=== PATIENT | male | born 1950 | race Caucasian/White ===

== ENCOUNTER 2019-05-27 06:26 | Observation (INO) | payer MEDICARE, OTHER ==
[~2019-05-27] VITALS: Ht 172.7 cm; Wt 67.1 kg
[~2019-05-27 06:26] MED LIST: ABILIFY5 MG; ACETAMINOPHEN325 M1 PO; ASPIRIN325 MG PO; CARAFATE1 GM PO; DESITIN60 GM TP; FOLIC ACID1 MG PO; HYDROCORTISONE28 G3 TP; METFORMIN HCL500 MG PO; METOPROLOL SUCC50 MG PO; METOPROLOL TART50 MG PO; METOPROLOL5 MG/5 M1 PO; PRILOSEC20 MG PO; SIMVASTATIN20 MG PO; THIAMINE HCL500 MG PO; TRAZODONE HCL150 MG PO; VENTOLIN HFA18 GM IH
--- OUTSIDE RECORDS SUMMARY | 2019-05-27 06:28 | XMS ---
PreManage Notification: TI JARQUIN Security Blow Down Operator Events No recent Security Events currently on file CRITERIA MET - Group Notification CARE PROVIDERS JUSTYN Orr Primary Care 06/03/2015-Current HEATHER PHONE: [phone] Filomena has no Care Guidelines for this patient. EElmo VISIT COUNT (12 MO.) 1 JASMYNE Yoo TOTAL 1 NOTE: Visits indicate total known visits. ED/UCC VISIT TRACKING (12 MO.) 05/27/2019 06:27 JASMYNE Galvez OR TYPE: Emergency COMPLAINT: - WEAKNESS INPATIENT VISIT TRACKING (12 MO.) No inpatient visits to display in this time frame [email or web address]
--- NOTE | 2019-05-27 10:15 | NUR ---
ADMISSION COMPLETE. IVF INFUSING TO RIGHT ARM IV, FIELD START SL INTACT TO LEFT ARM. PATIENT DENIES PAIN OR NAUSEA, IS LOOKING AT THE MENU FOR LUNCH. DISCUSSED WITH PATIENT THAT HE WOULD BE HAVING BEER WITH MEALS, AND THAT I WOULD GET ONE FOR HIM SOON. PATIENT HAS PRODUCTIVE SOUNDING COUGH, AGREES TO USE CALL LIGHT, IS ORIENTED AT THIS TIME, NO TREMORS NOTED.
[2019-05-27] MEDS ORDERED: METOPROLOL SUCC50 MG PO (10:59)
--- NOTE | 2019-05-27 12:26 | NUR ---
PATIENT SLEEPING WITH REGULAR RESPIRATIONS.
--- NOTE | 2019-05-27 13:08 | NUR ---
PATIENT RESTING IN BED. VITAL SIGNS AND I&O DONE. PATIENT DID NOT VOID OR EAT DURING THIS PERIOD. CALL LIGHT WITHIN REACH. NO OTHER NEEDS AT THIS TIME
--- NOTE | 2019-05-27 14:03 | NUR ---
PATIENT CONTINUES TO SLEEP, WHEN WOKE UP HE DENIES WANT TO EAT LUNCH. AFTERNOON REASSESSMENT DONE, NO CHANGES FROM ADMISSION ASSESSMENT.
--- NOTE | 2019-05-27 15:56 | NUR ---
PATIENT ADMITTED TODAY, HAS HAD A BEER AND A SNACK BEFORE LUNCH, SLEPT THROUGH LUNCH, DINNER ORDERED FOR PATIENT. PATIENT REPORTED TO HAVE BEEN FEBRILE IN E/R, HAS BEEN AFEBRILE SINCE COMING TO MED SURG. PLAN TO WAKE PATIENT FOR DINNER, LIKELY TO DISCHARGE TO HOME TOMORROW.
--- NOTE | 2019-05-27 17:13 | NUR ---
PATIENT SITTING UP TO EAT DINNER. BEER OPEN AND AT BEDSIDE. PATIENT IS FOLLOWING DIRECTIONS WELL, USES THE URINAL, VOIDING WELL.
--- NOTE | 2019-05-27 17:27 | NUR ---
PATIENT SITTING UP IN BED. VITAL SIGNS AND I&O DONE. CALL LIGHT WITHIN REACH. NO OTHER NEEDS AT THIS TIME
--- NOTE | 2019-05-27 19:20 | NUR ---
ROUNDED CHARGE. PATIENT IS RESTING IN BED WITH EYES CLOSED, RR 20. CALL LIGHT IN REACH.
--- NOTE | 2019-05-27 22:01 | NUR ---
EMPTIED PATIENT'S URINALS, GAVE HIM ANOTHER BEER AT HIS REQUEST IV'S FLUSHED FINE. PATIENT REQUESTED SOME COUGH SYRUP WHICH WAS GIVEN. PATIENT SHOWN HOW TO RUN THE REMOTE AND HOW TO TUR OFF HIS LIGHTS. PATIENT WATCHING TV IV INFUSING WNL. PATIENT HAD NO OTHER NEEDS. CALL LIGHT IN REACH.
--- NOTE | 2019-05-27 23:31 | NUR ---
PATIENT SITIING IN BED WATCHING TV DRINKING HIS BEER, WITH AN OCCASIONAL COUGH, CALL LIGHT IN REACH. PATIENT HAS NO NEEDS AT THIS TIME.
--- NOTE | 2019-05-28 01:20 | NUR ---
PATIENT CONTINUES TO WATCH TV AND IS DRINKING HIS BEER. URINAL EMPTIED. CALL LIGHT IN REACH AND PATIENT HAD NO OTHER NEEDS.
--- NOTE | 2019-05-28 03:34 | NUR ---
PATIENT STILL AWAKE, REQUESTED ANOTHER BEER WHICH WAS GIVEN AND PATIENT CONTINUES TO WATCH TV. CALL LIGHT IN REACH.
--- NOTE | 2019-05-28 05:03 | NUR ---
PATIENT SAT IN BED ALL NIGHT SIPPING ON BEERS AND IS READY TO GO HOME STILL JUST WATCHING TV. VS STABLE EXCEPT LOW GRADE FEVER 99.8F ORAL. CALL LIGHT IN REACH.
--- NOTE | 2019-05-28 05:49 | NUR ---
CALLED PATIENT'S PULSE HAS BEEN IN THE 90'S ALL NIGHT UNTIL NOW AND IT IS NOW IN THE 140'S AND THIS WAS CONFIRMED WITH FULL MINUTE APICAL PULSE, CONFIRMED WITH RADIAL PULSE AND SAT PROBE, BUT THEN HE URINATED 325 AND HAD LABS DRAWN AND HIS HR IS BACK TO THE 90'S. ORDERED PATIENT BE PUT ON TELE# AND HIS EXTENDED RELEASE METOPROLOL GIVEN EARLY YESTRDAYS DOSE WAS HELD DUE TO A LOW BLOOD PRESSURE AND A HIGH LACTIC ACID. PATIENT GOING ON TELE #7.
--- NOTE | 2019-05-28 06:13 | NUR ---
IN TO ASSES PATIENT WITH SHITAL WILLS. PATIENTS APICAL PULSE ASSESED FOR Q1 MINUTE AND COMPARED WITH RADIAL PULSE. PULSE IS 93. PATIENT DENIES ANY CHEST PAIN OR SOB. PATIENT STATED "I DIDNT GET MY BLOOD PRESSURE MEDICATION LAST NIGHT AND WHEN THAT HAPPENS MY HEART GETS FAST". PATIENTS HR RECORDED. SHITAL RN TO PLACE CALL TO MD TO UPDATE ON HR. PATIENT DENIES ANY FURTHER NEEDS. CALL LIGHT IN REACH.
--- NOTE | 2019-05-28 06:21 | NUR ---
METOPROLOL XL 75MG PO GIVEN AND PATIENT ON TELE#7 WITH A REGULAR SR OF 94. STILL NO PAIN OR PALPITATIONS.
--- NOTE | 2019-05-28 06:43 | EKG ---
[facility] [address] [facility] [place], [place] [address] Signed Sinus tachycardia Otherwise normal ECG When compared with ECG of 16-AUG-2016 11:10, No significant change was found Confirmed by ROHAN VANEGAS MD ([id number]) on 05/28/2019 6:43:41 AM Electronically Signed By: ROHAN VANEGAS MD 05/28/19 0643 PATIENT NAME: TI JARQUIN Electrocardiogram DATE OF : 50 PHYSICIAN: ROHAN VANEGAS MD REPORT #: [id number] REPORT IS CONFIDENTIAL AND NOT TO BE RELEASED WITHOUT AUTHORIZATION
--- NOTE | 2019-05-28 07:25 | NUR ---
PT RESTING SUPINE IN BED EYES CLOSED AND RESPIRATIONS EVEN AND UNLABORED. CALL LIGHT AND H2O IN REACH. REPORT RECEIVED FROM ELMA ISAACS.
--- NOTE | 2019-05-28 07:38 | NUR ---
pt resting in left lateral side eyes closed and respirations even and unlabored. call ligth and h2o in reach.
--- NOTE | 2019-05-28 08:10 | NUR ---
PT RESTING SUPINE IN BED, ALERT AND ORIENTED TO VOICE. PT'S HR IS TACHY AT 140, MD AWARE AND IV MAG 4MG HUNG PER MD ORDER. PT DENIES SOB, CHEST PAIN OR ANY OTHER SYMPTOMS AT THIS TIME. CALL LIGHT AND H2O IN REACH. PT SITTING UP EATING BREAKFAST; NO NEEDS OR CONCERNS VOICED.
--- NOTE | 2019-05-28 11:19 | NUR ---
PT RESTING SUPINE IN BED ALERT AND ORIENTED. PT DENIES SOB, PAIN, NAUSEA, PALPITATIONS, DIZZINESS OR OTHER SYMPTOMS. CALL LIGHT AND H2O IN REACH. NO NEEDS OR CONCERNS VOICED.
--- NOTE | 2019-05-28 12:10 | NUR ---
SPOKE WITH PATIENT IN ROOM. PATIENT WAS RESTING WITH EYES CLOSED BUT OPENED TO SOUND. STATES HE LIVES WITH HIS SISTER. HE IS RETIRED. HE DOES NOT DRIVE BUT SHE DOES AND TAKES HIM TO THE STORE AND APPOINTMENTS. THEY SHARE HOUSEWORK BUT HE STATES HE TAKES CARE OF HIMSELF. HE DENIES USING DME. PATIENT INTENDS AND FEELS SAFE TO RETURN HOME AT DISCHARGE. HE STATES HE GETS FOOD STAMPS AND FEELS HE HAS ENOUGH MONEY FOR MEDICATIONS, FOOD AND UTILITIES. HE DENIES NEEDING ANY RESOURCES. STATES HE HAS A PCP TERRELL REGAN AT OUR CLINIC. HE UNDERSTANDS HE WILL NEED TO FOLLOW UP THERE AFTER DISCHARGE. NO KNOWN BARRIERS TO DISCHARGE HOME AT THIS TIME. WILL FOLLOW NEEDED.
--- NOTE | 2019-05-28 12:44 | NUR ---
PT RESTING IN SEMIFOWLERS POSITION IN BED. PT PROVIDED WITH 24 OZ CAN OF BEER PER HIS REQUEST. LUNCH ORDER ALSO WAS PLACED PER PT REQUEST. MD IS AWARE OF PT'S PERSISTING TACHYCARDIA WITH A CURRENT HR OF 124. PT REMAINS ASYMPTOMATIC AT THIS TIME. CALL LIGHT AND H2O IN REACH.
--- NOTE | 2019-05-28 14:33 | NUR ---
PT RESTING IN SEMIFOWLERS POSITION IN BED ALERT AND ORIENTED. CALL LIGHT H2O AND BEER IN REACH. PT ASSESSMENT COMPLETED. PT DNEIES SOB, NAUSEA, PAIN OR ANY OTHER SYMPTOMS OR CONCERNS AT THIS TIME. PT VOIDING LARGE AMOUNTS OF CLEAR YELLOW URINE, URINALS EMPTIED AT THIS TIME AND RECORDED.
--- NOTE | 2019-05-28 16:25 | NUR ---
PT ALERT AND ORIENTED CALL LIGHT, BEER AND H2O IN REACH. PT DENIES NEEDS OR CONCERNS. IV FLUIDS INFUSING ORDERED.
--- NOTE | 2019-05-28 17:10 | NUR ---
PT STATES UNDERSTANDING OF HIS MEDS. I TAKE A BP MED [facility] AND EVERYTHING ELSE I TAKE IS NEEDED. PT STATES HE DOESN'T KNOW A LOT ABOUT HIS DX, WE TALKED ABOUT IT AND HE THEN SAID HE DID GET HIS FLU SHOT DOWN AT THE [facility] IN FEB OR MAR. WILL TALK TO PT AGAIN TOMORROW.
--- NOTE | 2019-05-28 19:29 | NUR ---
PATIENT RESTING QUIETLY IN BED, EYES CLOSED, RESPIRATIONS EVEN AND REGULAR, HR-124 ON TELE#7. CALL LIGHT AND FLUIDS IN REACH.
--- NOTE | 2019-05-28 21:05 | NUR ---
PT REPORT RECIEVED FROM SHITAL WILLS. PT WATCHING TV IN ROOM. NO NEEDS AT THIS TIME. CALL LIGHT IN REACH.
--- NOTE | 2019-05-28 21:45 | NUR ---
PT ASSESSMENT COMPLETED. TELE#7 @98 SR. BILATERAL LUNGS COURSE IN LOWER LOBES. CLEAR IN UPPER. PT DECLINES WATER, HAS A BEER. UO SUFFICIENT. PT HAS HAD SEVERAL RUNS OF SINUS TACH WITHOUT CHEST PAIN, SOB. SCHEDULED MEDS PROVIDED. NO OTHER NEEDS, CALL LIGHT IN REACH.
--- NOTE | 2019-05-28 22:08 | NUR ---
MD NOTIFIED OF SINUS TCH MAINTINAING IN THE 150s BY PHONE. MD GAVE VERBAL ORDER FOR 25MG METOPROLOL I TIME BY MOUTH. ORDER REPEATED BACK.
--- NOTE | 2019-05-28 22:10 | NUR ---
PRIMARY RN EDYTA RECEIVED TELEPHONE ORDER FOR 25 MG PO METOPROLOL X1 NOW FOR PT'S SUSTAINED HR IN THE 150'S. ENTERED ORDERS CAMPUS SUPERVISOR.
--- NOTE | 2019-05-28 22:39 | NUR ---
ORDERED METOPROLOL PROVIDED AFTER VITALS TAKEN. TELE # 7 SINUS TACH AT 148. NO THER NEEDS, CALL LIGHT IN REACH.
--- NOTE | 2019-05-29 00:11 | NUR ---
PT RESTING IN BED, EYES CLOSED. RR 16, EVEN, UNLABORED. TELE #7 SINUS TACH AT 139. CALL LIGHT IN REACH.
--- NOTE | 2019-05-29 01:48 | NUR ---
PT RESTING IN BED, EYES CLOSED. RR 14, EVEN, UNLABORED. CALL LIGHT IN REACH.
--- NOTE | 2019-05-29 04:20 | NUR ---
PT AWAKE IN ROOM. ASSESSMENT COMPLETED. NO CHANGES. VS AND I&O COMPLETED. NO OTHER NEEDS AT THIS TIME. CALL LIGHT IN REACH.
--- NOTE | 2019-05-29 09:14 | NUR ---
PT IS ALERT, ATE 100% OF HIS BREAKFAST WITH A 16OZ BEER. STATES HE IS FEELING MUCH BETTER, OCCASIONAL LOOSE PROD COUGH, MAINTAINS SATS ON RA. NO TEMPS.DENIES ANY NEEDS. IVF PATENT. USING CALL LIGHT APPROP.
--- NOTE | 2019-05-29 09:45 | NUR ---
PT RESTING IN SEMIFOWLERS POSITION IN BED. PT ALERT AND ORIENTED CALL LIGHT AND H2O IN REACH. PT DENIES NEEDS OR CONCERNS. PT DENIES SOB, NAUSEA OR PAIN.
[2019-05-29] MEDS ORDERED: OSELTAMIVIR PHO75 MG PO (10:35)
[2019-05-29] MEDS ORDERED: NICORETTE4 M1 BUCCAL (10:36)
--- NOTE | 2019-05-29 12:06 | NUR ---
PT RESTING IN BED ON L SIDE WATCH TV. PT ENGAGED SOME, APPEARED A LITTLE DIS- INTERESTED IN CONVERSATION. GAVE BLESSING, WILL FOLLOW NEEDED
--- NOTE | 2019-05-29 12:10 | NUR ---
Spoke with Ilir. He states he is resting, denies further needs. Plans on going to his house on discharge.
--- NOTE | 2019-06-01 13:31 | NUR ---
TALKED WITH PT REGARDING HIS STAY IN THE HOSPITAL, HE STATES HE JUST GOT HIS ANTIVIRAL MED FILLED AND FINISHED THOSE, HE STATES THE INSURANCE WOULDN'T PAY FOR THE NICOTINE LOZENGES AND HE WOULDN'T PAY FOR IT HIMSELF. HE IS GOING TO BE FOLLOWING UP WITH HIS PCP.
== END 2019-05-29 13:40 | disposition home or self-care (01) ==
LOC: ED 06:26 → MS 06:28 → ED 06:38 → MS 06:38
PROVIDERS: ADMIT Internal Medicine
DX: J10.1 Influenza due to other identified influenza virus with other respiratory manifestations (principal); R74.0 Nonspecific elevation of levels of transaminase and lactic acid dehydrogenase [LDH]; R00.0 Tachycardia, unspecified; E86.0 Dehydration; I10 Essential (primary) hypertension; F17.200 Nicotine dependence, unspecified, uncomplicated; Z79.899 Other long term (current) drug therapy; Z86.19 Personal history of other infectious and parasitic diseases
CPT/HCPCS: 36415; 71045; 80048; 80053; 81001; 83605; 83735; 85025; 87502; 93005; 93010; 96361; 96374; 96375; 99291; 99406; G0378; J3411; J3475; J3480; J7030; J7060

== ENCOUNTER 2019-06-09 13:38 | Emergency (ER) | payer MEDICARE, OTHER ==
[~2019-06-09] VITALS: Ht 172.7 cm; Wt 67.1 kg
[~2019-06-09 13:38] MED LIST changes: +NICORETTE4 M1 BUCCAL; +OSELTAMIVIR PHO75 MG PO
--- OUTSIDE RECORDS SUMMARY | 2019-06-09 13:42 | XMS ---
PreManage Notification: TI JARQUIN Security Commercial Artist Events No recent Security Events currently on file CRITERIA MET - Group Notification - [facility] - Has Care Guidelines - [facility] - 2 Visits in 30 Days CARE PROVIDERS YANI VASQUEZ Nurse Practitioner: Family 05/28/2019-Current PHONE: Unknown JUSTYN Orr Primary Care 06/03/2015-Current [facility] PHONE: [phone] Filomena has no Care Guidelines for this patient. Care History Medical/Surgical 05/28/2019 [facility] - Patient is currently established with [facility]. If patient is seen in the ED during business hours. Please contact CHWs at [facility]. Care Recommendation: If this patient has had 5 or more Emergency Department visits in the last 12 months.\T\nbsp; Patient will require education on the scope and purpose of the ED as an acute care provider not a Primary Care Provider and should not be utilized for chronic conditions.\T\nbsp; These are guidelines and the provider should exercise clinical judgment when providing care. 05/28/2019 [facility] Patient has follow up appointment on 06/09/2019 with Cristiana Rodriguez E.D. VISIT COUNT (12 MO.) 2 [facility] Jean TOTAL 2 NOTE: Visits indicate total known visits. ED/UCC VISIT TRACKING (12 MO.) [facility] COMPLAINT: - DEHYDRATION 05/27/2019 06:27 JASMYNE Galvez [place] TYPE: Emergency COMPLAINT: - INFLUENZA B, DEHYDRATION INPATIENT VISIT TRACKING (12 MO.) 05/27/2019 06:28 JASMYNE Galvez [place] TYPE: Observation COMPLAINT: - INFLUENZA B, DEHYDRATION DIAGNOSES: - Flu due to oth ident influenza virus w oth resp manifest - Essential (primary) hypertension - Other watermelon harvesting supervisor (current) drug therapy - Personal history of other infectious and parasitic diseases - Weakness - Dehydration - Nicotine dependence, unspecified, uncomplicated - Nonspec elev of levels of transamns \T\ lactic acid dehydrgnse - Tachycardia, unspecified [email or web address]
== END 2019-06-09 16:40 | disposition home or self-care (01) ==
LOC: ED 13:38
DX: E86.0 Dehydration (principal); I10 Essential (primary) hypertension; E11.9 Type 2 diabetes mellitus without complications; F17.200 Nicotine dependence, unspecified, uncomplicated; Z79.899 Other long term (current) drug therapy
CPT/HCPCS: 36415; 80053; 85025; 96360; 96361; 99284-25; G0480; J7030

== ENCOUNTER 2020-02-04 06:20 | Day surgery (SDC) | payer MEDICARE, OTHER ==
--- NOTE | 2020-02-01 20:02 | EKG ---
[facility] [address] [facility] [place], [place] [address] Signed Sinus tachycardia Biatrial enlargement Abnormal ECG When compared with ECG of 27-MAY-2019 06:52, No significant change was found Confirmed by SANTY SCHAEFER DO ([id number]) on 02/01/2020 8:02:33 PM Electronically Signed By: SANTY SCHAEFER DO 02/01/202001 PATIENT NAME: TI JARQUIN Electrocardiogram DATE OF : 50 PHYSICIAN: SANTY SCHAEFER DO REPORT #: [id number] REPORT IS CONFIDENTIAL AND NOT TO BE RELEASED WITHOUT AUTHORIZATION
[~2020-02-04] VITALS: Ht 170.2 cm; Wt 65.8 kg
[~2020-02-04 06:20] MED LIST changes: +FLOVENT DISKU250 MCG INH
--- NOTE | 2020-02-04 08:31 | NUR ---
02/04/20 0831 Lena Nam 3036 PT ARRIVED TO PACU WITH ORAL AIRWAY IN PLACE. VSS. O2 MASK IN PLACE AT 10L.
--- NOTE | 2020-02-04 18:32 | OR ---
[facility] [address] [place], [place] [address] Signed DATE OF OPERATION: 02/04/2020 SURGEON: Kilo Morales MD PREOPERATIVE DIAGNOSES: 1. History of tubular adenoma 2012. 2. Chronic alcoholism and multiple medical problems, ASA category IV. POSTOPERATIVE DIAGNOSES: 1. Sigmoid diverticulosis. 2. Redundant colon. 3. Polyps x3, probable hyperplastic polyps. PROCEDURE: Total colonoscopy to cecum with cold morcellation polypectomy x3. ANESTHESIA: Intravenous sedation, propofol infusion; Kilo Mandel CRNA. INDICATION: This 69-year-old white man is a patient of Cristiana Mccloud and is markedly debilitated related to tobacco and alcohol abuse. He underwent colonoscopy in 2012 at which time he was found to have a tubular adenoma. He was seen in early August for consideration of surveillance colonoscopy, but due to the COVID pandemic, his surveillance colonoscopy was delayed. He is now here for colonoscopy. The risks of bleeding, infection, and perforation related to colonoscopy were reviewed with him. He understands and wished to proceed. FINDINGS: The prep was good. Complete colonoscopy was undertaken to the cecum without question. The appendiceal orifice was well identified. He had three small polyps in aggregate, 1 in the right colon and 2 at the rectum. Likely they were hyperplastic and not even adenomatous, though pathology is pending. DESCRIPTION OF PROCEDURE: The patient was brought to the surgical endoscopy suite room #2, placed in lateral decubitus position, given intravenous sedation with full cardiopulmonary monitoring by the improvement advisor with propofol infusional technique. Digital rectal examination was normal. Electronically Signed By: KILO MORALES MD 02/04/20 1832 PATIENT NAME: TI JARQUIN OPERATIVE REPORT DATE OF : 50 REPORT #: [id number] PHYSICIAN: KILO MORALES MD PCP: CRISTIANA MCCLOUD REPORT IS CONFIDENTIAL AND NOT TO BE RELEASED WITHOUT AUTHORIZATION [facility] [address] [place], [place] [address] Signed An Olympus video colonoscope was passed in the rectum and manipulated throughout the colon noting diverticulosis and an extremely redundant colon. With time perseverance, the scope was ultimately advanced to the cecum. The appendiceal orifice was well identified as was the ileocecal valve. The scope was withdrawn in the mid ascending colon was a small polyp likely hyperplastic, though it may be adenomatous, it was excised with cold morcellation technique. Photographs were taken. The scope was further withdrawn and diverticula were seen in the left colon. In the rectosigmoid, there were 2 small polyps together, both excised with cold morcellation technique, again, most likely hyperplastic. Further withdrawal of scope showed no other abnormalities. Scope was removed and the patient was taken to the recovery room in good condition. CONCLUDING DIAGNOSIS: Small polyps x3, likely hyperplastic. PLAN: Recommend a repeat colonoscopy in 5 years if adenomatous polyps are noted. He will return to the ongoing care of LUIS Fernandez. MD MANUEL Oswald/MARICRUZ /[id number] cc: LUIS Fernandez Copies: ~ Electronically Signed By: KILO MORALES MD 02/04/20 1832 PATIENT NAME: TI JARQUIN OPERATIVE REPORT DATE OF : 50 REPORT #: [id number] PHYSICIAN: KILO MORALES MD PCP: CRISTIANA MCCLOUD REPORT IS CONFIDENTIAL AND NOT TO BE RELEASED WITHOUT AUTHORIZATION
--- NOTE | 2020-02-09 12:50 | PATH ---
[facility] [address] [facility] [place], [place] [address] Signed SPECIMEN(S): A ASCENDING POLYP SPECIMEN(S): B RECTAL POLYP SPECIMEN SOURCE: A. ASCENDING POLYP B. RECTAL POLYP CLINICAL HISTORY: Colonoscopy. History of polyps. Postop: Diverticulitis, polyps x 2. MICROSCOPIC DESCRIPTION: Histologic sections of all submitted blocks are examined by light microscopy. These findings, together with the gross examination, support the pathologic diagnosis. FINAL PATHOLOGIC DIAGNOSIS: A. Colon, ascending, polypectomy: - Tubular adenoma, one fragment. - Additional fragments of colonic epithelium are within normal limits. B. Rectum, polypectomy: - Hyperplastic polyp. COMMENT: (A) and (B) There is no evidence of dysplasia or malignancy. TWK:vlg:C2NR GROSS DESCRIPTION: Two specimens are received in two containers, labeled "GN." A. The specimen, labeled "GN, #1," and designated on the requisition "ascending polyp," is received in formalin and consists of two monroy soft tissue fragments that measure 0.4 cm in greatest dimension. The specimen is entirely submitted in cassette (A1). B. The specimen, labeled "GN, #2," and designated on the requisition "rectal polyp," is received in formalin and consists of two monroy soft tissue fragments that measure 0.3 cm in greatest dimension. The specimen is entirely submitted in cassette (B1). AT (under the direct supervision of a pathologist) The Gross Description was prepared using a voice recognition system. The report was reviewed for accuracy; however, sound-alike word errors, addition and/or deletions may occur. If there is any question about this report, please contact Client Services. PATIENT NAME: TI JARQUIN PATHOLOGY DATE OF : 50 REPORT #: [id number] PHYSICIAN: AMIE PATHOLOGY PCP: TERRELL MCCLOUD REPORT IS CONFIDENTIAL AND NOT TO BE RELEASED WITHOUT AUTHORIZATION [facility] [address] [facility] [place] [address] Signed PERFORMING LABORATORY: The technical component was performed by [facility], [address] [place] [address] (Clinical Trial Associate: Matilde Montoya MD; CLIA# [id number]). The professional [facility], [address] [place] [address]. Diagnostician: Bartolo Sidhu MD Pathologist Electronically Signed 02/09/2020 Copies: ~ PATIENT NAME: TI JARQUIN PATHOLOGY DATE OF : 50 REPORT #: [id number] PHYSICIAN: AMIE HAILE PCP: TERRELL MCCLOUD REPORT IS CONFIDENTIAL AND NOT TO BE RELEASED WITHOUT AUTHORIZATION
== END 2020-02-04 08:58 | disposition home or self-care (01) ==
LOC: DS 06:20 → OPS 06:20 → DS 07:45 → OPS 08:58
PROVIDERS: ATTEND Surgery
PROC: 0DBP8ZZ Excision of Rectum, Via Natural or Artificial Opening Endoscopic (ICD-10-PCS; 2020-02-04)
PROC: 0DBK8ZZ Excision of Ascending Colon, Via Natural or Artificial Opening Endoscopic (ICD-10-PCS; principal; 2020-02-04 09:15)
DX: Z12.11 Encounter for screening for malignant neoplasm of colon (principal); D12.2 Benign neoplasm of ascending colon; K62.1 Rectal polyp; K57.30 Diverticulosis of large intestine without perforation or abscess without bleeding; I10 Essential (primary) hypertension; K21.9 Gastro-esophageal reflux disease without esophagitis; J44.9 Chronic obstructive pulmonary disease, unspecified; Z79.899 Other long term (current) drug therapy; Z87.891 Personal history of nicotine dependence
CPT/HCPCS: 36415; 71046; 80053; 82247; 82465; 83615; 84100; 84478; 84550; 85025; 93005; 93010; 94640; J2704; J7121

== ENCOUNTER 2021-12-12 08:52 | Day surgery (SDC) | payer MEDICARE, OTHER ==
[~2021-12-12] VITALS: Ht 170.2 cm; Wt 65.9 kg
[~2021-12-12 08:52] MED LIST changes: +IBUPROFEN200 M1 PO
[2021-12-12] MEDS ORDERED: VITAMIN C100 MG PO (09:25)
--- NOTE | 2021-12-12 11:07 | NUR ---
12/12/21 1107 Birgit Nguyen 1053-PATIENT ARRIVED TO PACU ON 10L MASK NONAROUSABLE ORAL AIRWAY IN PLACE. PLACED ON 6L MASK. SB HR MID 40'S NO DRAINAGE TO MOUTH. IVF INFUSING 1106-PATIENT REMAINS NONAROUSABLE ORAL AIRWAY IN PLACE RR EVEN 100% 6L MASK. SB HR 50'S
--- NOTE | 2021-12-12 11:42 | NUR ---
PT ARRIVES TO DS RM 3 VIA STRETCHER TO PACU WITH EYES OPEN, RESP EVEN AND UNLABORED. PT STATES, "I AM A BIT CONFUSED" AND RATES PAIN 2-3 WHEN PROVIDED FACES SCALE. LIGHTS DIMMED, CURTAIN OPEN WITH CALL LIGHT IN REACH. PT CLOSES EYES AND SLIGHTLY SNORES. WILL CONTINUE TO MONITOR.
--- NOTE | 2021-12-12 12:49 | NUR ---
1235: PT AROUSES WITH VERBAL STIM FROM THIS RN. VSS, RESP EVEN AND UNLABORED. REPORTS FEELING A LITTLE MORE CLEAR AFTER RESTING BUT REMAINS DROWSY. ABLE TO HOLD APPROPRIATE CONVERSATION. DENIES PAIN AND NAUSEA AT THIS TIME. PO FLUID INTAKE ENCGD. COMFORTABLE WITHOUT NEEDS. WARM BLANKET PROVIDED. CALL LIGHT WITHIN REACH
--- NOTE | 2021-12-12 13:40 | NUR ---
PT RESTING IN BED ON RIGHT SIDE WITH EYES CLOSED, RESP EVEN AND UNLABORED. PT STARTLES WITH RN ENTRNACE TO ROOM. PT DENIES PAIN IN TONGUE AND OR NAUSEA. PT DECLINES URGE TO VOID AT THIS TIME. MAGDA CALLS TO CHECK IN ON PT, THIS RN WILL PHONE WHEN READY TO DC HOME. CALL LIGHT WITHIN REACH.
--- NOTE | 2021-12-12 16:53 | NUR ---
[id number]: PT USES CALL LIGHT TO ALERT RN OF URGE TO VOID. PT ENCOURAGED TO MOVE SLOWLY AND SIT AT SIDE OF BED PRIOR TO STANDING. PT DENIES ANY DIZZINESS OR NAUSEA WITH POSITION CHANGES. PT AMBULATES AT BASELINE WITH RN ASSIST TO BATHROOM WITH USE OF WALL HANDRAILS. PT ABLE TO VOID QS WITH NO PROBLEMS, BACK TO DS RM 3 TO GET DRESSED. [id number]: NIECE JONATHAN CONTACTED FOR SAFE RIDE HOME. DC INSTRUCTIONS PRESENTED VERBALLY AND WRITTEN TO PT. PAIN RX IN DC FOLDER AND PT AWARE OF NEED TO TAKE TO PHARMACY TO HAVE FILLED. PT DC FROM DS RM 3 VIA WC TO JONATHAN WAITING AT FRONT ENTRANCE TO HOME.
--- NOTE | 2021-12-19 10:55 | OR ---
[facility] [address] [place], [place] [address] Signed DATE OF OPERATION: 12/12/2021 SURGEON: Barber Martinez MD PREOPERATIVE DIAGNOSIS: Lingual cancer. POSTOPERATIVE DIAGNOSIS: Lingual cancer. PROCEDURE: Excision of left lingual lesion. ANESTHESIA: General orotracheal; Gil ALSTON. PREOPERATIVE HISTORY: Mr. 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 He has done well until the past month or so. He has developed an obvious recurrence on the superior portion of the excision site. This was about a 2 cm lesion on the undersurface of the left side of the tongue and he was taken to the operating room for the above-mentioned procedures. OPERATIVE PROCEDURE AND FINDINGS: After informed consent, the patient was taken to the operating room, placed in the supine position where general orotracheal anesthesia was induced. The patient and procedure were verified. The oral cavity was examined with the headlight. There was the obvious recurrent tumor on the undersurface of the left side of the tongue adjacent to the previous excision site. This was an exophytic, very friable tumor about 2 cm greatest diameter. A towel clip was placed in the anterior tongue for retraction. The lesion was then excised with 5-10 mm margins with needle point cautery. The lesion did not appear to be overly invasive and excision extended into the lingual musculature, but not all the way through the tongue. The lesion was removed completely by gross inspection. A suture was placed in the superior margin of the excision. Hemostasis was obtained with needle point cautery. The wound was closed primarily with 4-0 interrupted Vicryl. Hemostasis verified. Adequate closure obtained. Pharynx was suctioned clear of blood and secretions. The patient was then awakened, extubated, and transported to the recovery room in good condition. No complications. BLOOD LOSS: Electronically Signed By: BARBER MARTINEZ MD 12/19/21 1055 PATIENT NAME: BRITTONTI CHINTAN OPERATIVE REPORT DATE OF : 50 REPORT #: [id number] PHYSICIAN: BARBER MARTINEZ MD PCP: TERRELL MCCLOUD SENIOR MORTGAGE LOAN PROCESSOR REPORT IS CONFIDENTIAL AND NOT TO BE RELEASED WITHOUT AUTHORIZATION [address] [address] Signed Minimal. SPECIMEN: To pathology. Barber Martinez MD GC/AMIL /[id number] Copies: ~ Electronically Signed By: BARBER MARTINEZ MD 12/19/21 1055 PATIENT NAME: TI WEST OPERATIVE REPORT DATE OF : 50 REPORT #: [id number] PHYSICIAN: BARBER MARTINEZ MD PCP: TERRELL MCCLOUD NP REPORT IS CONFIDENTIAL AND NOT TO BE RELEASED WITHOUT AUTHORIZATION
--- NOTE | 2021-12-19 14:42 | PATH ---
[facility] [address] [place], [place] [address] Signed SPECIMEN(S): A LINGUAL LESION SPECIMEN SOURCE: A. LINGUAL LESION p CLINICAL HISTORY: Left lingual lesion, history of cancer. 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 - Tumor focality: Unifocal. - Multiple primary sites: Not applicable. - Tumor site: "Left lingual lesion". - Tumor laterality: Left. - Tumor size: 2.6 x 2.1 x 0.9 cm. - Preexisting pleomorphic adenoma component: Not applicable. - Histologic type: Squamous cell carcinoma, conventional. - Histologic grade: G2, moderately differentiated. - Tumor depth of invasion: 3 mm. - Lymphovascular invasion: Present. - Perineural invasion: Suspicious, see comment. - Margins: - Specimen margin status of invasive tumor: Invasive carcinoma present at superior margin. - Specimen margin status for noninvasive tumor: Negative for high-grade dysplasia/in situ disease (approximately 1 mm from the mid-posterior margin). Low-grade dysplasia is present along the mid-posterior margin (slide A3, blue/red ink). - Regional lymph node status: Not applicable (no regional lymph nodes submitted or found). - Pathologic stage classification (pTNM, AJCC 8th edition): pT2 pN not assigned. COMMENT: Small diameter nerves are seen embedded within the invasive carcinoma, however PATIENT NAME: TI JARQUIN PATHOLOGY DATE OF : 50 REPORT #: [id number] PHYSICIAN: AMIE PATHOLOGY PCP: TERRELL MCCLOUD NP REPORT IS CONFIDENTIAL AND NOT TO BE RELEASED WITHOUT AUTHORIZATION [facility] [address] [place], [place] [address] Signed definitive perineural invasion is not identified. A diagnostic alert was initiated by Dr. Jennings on 12/19/2021. As part of [facility]' Quality Improvement Program, this case was reviewed by another member of our pathology staff with board-certification in oral-mechanical estimator. NAL:MLK:cml:C1NR MICROSCOPIC EXAMINATION: Histologic sections of all submitted blocks are examined by light microscopy. These findings, together with the gross examination, support the pathologic diagnosis. GROSS DESCRIPTION: The specimen, labeled "GN, A," and designated on the requisition "lingual lesion, left lingual lesion, history of cancer, suture on superior margin," is received in formalin and consists of a ragged, irregularly shaped, monroy-white mucosa covered, 2.6 x 2.1 x 0.9 cm tissue piece is oriented with a black suture at one end designated superior. For the purpose of this dictation, the black suture is arbitrarily designated 12 o'clock. The specimen is inked as follows: 12 o'clock-3 o'clock = blue; 3 o'clock-6 o'clock = red; 6 o'clock-9 o'clock = green; 9 o'clock-12 o'clock = orange. On the mucosal surface is a monroy-white, indurated, somewhat lobulated, fungating, 2.0 x 1.5 x 0.5 cm lesion that is 0.2 cm from the nearest peripheral resection margin at approximately 12 o'clock and 9 o'clock. The specimen is sectioned from 12 o'clock to 6 o'clock. The lesion grossly appears to invade into the soft tissue and is 0.2 cm from the deep margin. The specimen is submitted entirely as follows: A1 12 o'clock and 6 o'clock ends, en face A2-A4 remaining specimen submitted sequentially from 12 o'clock to 6 o'clock AI (under the direct supervision of a pathologist) The Gross Description was prepared using a voice recognition system. The report was reviewed for accuracy; however, sound-alike word errors, addition and/or deletions may occur. If there is any question about this report, please contact Client Services. PERFORMING LABORATORY: The technical component was performed by [facility], [address] [place] [id number] (CLIA# [id number]). Professional interpretation was PATIENT NAME: TI JARQUIN PATHOLOGY DATE OF : 50 REPORT #: [id number] PHYSICIAN: AMIE HAILE PCP: TERRELL MCCLOUD NP REPORT IS CONFIDENTIAL AND NOT TO BE RELEASED WITHOUT AUTHORIZATION [facility] [address] [place], [place] [address] Signed performed by [facility], [address] [address] (CLIA# [id number]). Diagnostician: Leta Jennings MD Pathologist Electronically Signed 12/19/2021 Copies: ~ PATIENT NAME: TI JARQUIN CHINTAN PATHOLOGY DATE OF : 50 REPORT #: [id number] PHYSICIAN: AMIE PATHOLOGY PCP: TERRELL MCCLOUD NP REPORT IS CONFIDENTIAL AND NOT TO BE RELEASED WITHOUT AUTHORIZATION
== END 2021-12-12 14:30 | disposition home or self-care (01) ==
LOC: DS 08:52 → OPS 08:52
PROVIDERS: ATTEND Otolaryngology
PROC: 0CB7XZZ Excision of Tongue, External Approach (ICD-10-PCS; principal; 2021-12-12 10:30)
DX: C02.0 Malignant neoplasm of dorsal surface of tongue (principal); J44.9 Chronic obstructive pulmonary disease, unspecified; I10 Essential (primary) hypertension; F10.20 Alcohol dependence, uncomplicated
CPT/HCPCS: 00170; J0330; J1100; J1885; J2250; J2405; J2704; J2765; J3010; J7121

== ENCOUNTER 2022-08-25 11:11 | Emergency (ER) | payer OTHER, MEDICARE ==
[~2022-08-25] VITALS: Ht 170.2 cm; Wt 65.8 kg
[~2022-08-25 11:11] MED LIST changes: +VITAMIN C100 MG PO
[2022-08-25] MEDS ORDERED: METOPROLOL SUCC25 MG PO (11:21)
== END 2022-08-25 12:58 | disposition home or self-care (01) ==
LOC: ED 11:11
DX: S01.01XA Laceration without foreign body of scalp, initial encounter (principal); I10 Essential (primary) hypertension; E11.9 Type 2 diabetes mellitus without complications; F17.200 Nicotine dependence, unspecified, uncomplicated; Z79.899 Other long term (current) drug therapy; W01.0XXA Fall on same level from slipping, tripping and stumbling without subsequent striking against object, initial encounter
CPT/HCPCS: 12002; 70450; 99283-25

== ENCOUNTER 2022-09-30 10:16 | Emergency (ER) | payer MEDICARE, OTHER ==
[~2022-09-30] VITALS: Ht 170.2 cm; Wt 65.8 kg
[~2022-09-30 10:16] MED LIST changes: +METOPROLOL SUCC25 MG PO
[2022-09-30] MEDS ORDERED: ADULT LOW DOSE81 MG PO (12:01)
[2022-09-30] MEDS ORDERED: LIPITOR10 MG PO (12:01)
[2022-09-30 13:17] VITALS: BP 154/87
--- NOTE | 2022-09-30 16:43 | EKG ---
[facility] [address] [facility] [place] [address] Signed Normal sinus rhythm Normal ECG When compared with ECG of 05-DEC-2021 13:47, No significant change was found Confirmed by GHASSAN CASILLAS MD ([id number]) on 09/30/2022 4:43:19 PM Electronically Signed By: GHASSAN CASILLAS MD 09/30/22 1643 PATIENT NAME: TI JARQUIN Electrocardiogram DATE OF : 50 PHYSICIAN: GHASSAN CASILLAS MD REPORT #: [id number] REPORT IS CONFIDENTIAL AND NOT TO BE RELEASED WITHOUT AUTHORIZATION
== END 2022-09-30 13:17 | disposition home or self-care (01) ==
LOC: ED 10:16
DX: R53.1 Weakness (principal); I10 Essential (primary) hypertension; E11.9 Type 2 diabetes mellitus without complications; J44.9 Chronic obstructive pulmonary disease, unspecified; F17.200 Nicotine dependence, unspecified, uncomplicated; W17.89XA Other fall from one level to another, initial encounter; Z88.5 Allergy status to narcotic agent; Z79.899 Other long term (current) drug therapy; Z86.73 Personal history of transient ischemic attack (TIA), and cerebral infarction without residual deficits
CPT/HCPCS: 36415; 70450; 71045; 80053; 81001; 83605; 85025; 93005; 93010; J7030

== ENCOUNTER 2023-01-01 05:50 | Day surgery (SDC) | payer MEDICARE, OTHER ==
--- NOTE | 2022-12-27 12:59 | NUR ---
completed pre-admit in cancer clinic. then call into [facility] and explained the process and what time the pt would need to be at the hospital on the day of surgery. They understood the instructions at this time.
[~2023-01-01] VITALS: Ht 170.2 cm; Wt 57.0 kg
[~2023-01-01 05:50] MED LIST changes: +ADULT LOW DOSE81 MG PO; +ATORVASTATIN CA10 MG; +CARBOPLATI10 MG/1 ML IV; +CEPHALEXIN500 MG; +FLOMAX0.4 MG PO; +LIPITOR10 MG PO; +ONDANSETRON ODT8 MG PO; +PACLITAXEL6 MG/1 ML IV; +SENNA8.6 MG PO; +TYLENOL325 MG PO; +VENTOLIN HFA18 GM INH
[2023-01-01] MEDS ORDERED: ATIVAN1 MG PO (06:13)
[2023-01-01 06:26] VITALS: BP 126/68
[2023-01-01] MEDS ORDERED: PERCOCET 7.5-31 EACH PO (08:39)
[2023-01-01] MEDS ORDERED: ACETAMINOPHEN325 M1 PO (08:40)
--- NOTE | 2023-01-01 09:05 | NUR ---
01/01/23 0905 Sheets,Lena 0815 PT ARRIVED TO PACU ON 10L VIA MASK, ORAL AIRWAY IN PLACE, JAW THRUST USED BY SHIPPING TRACK SUPERVISOR, AND RESP EVEN AND UNLABORED. PT HEAD TURNED TO LEFT SIDE SLGIHTLY AND JAW THRUST NO LONGER NEEDED TO MAINTAIN AIRWAY. SMALL SKIN ABRASION NOTED ON LEFT NECK WITH SCANT AMOUNT OF DRAINAGE. P[T SITTING IN HIGH FOWLERS. 0818 O2 DECREASED TO 6L. 0819 PT STARTED COUGHING AND PERIOD OF APNEA NOTED, JAW THRUST USED AND PT EYES REMAIN CLOSED AND UNABLE TO FOLLOW COMMANDS. ORAL AIRWAY REMOVED AND SUCTION USED, RN ENCOURAGING DEEP BREATHING. SMALL AMOUNT OF BRIUGHT RED DRAINAGE NOTED IN SUCITON. ORAL AIRWAY REPLACED AND RESP EVEN AND UNLABORED WITH HEAD TILTED BACK ON PILLOW. O2 REMAINS IN PLACE. 0827 PT STARTS SPITTING OUT AIRWAY AND COUGHING, ORAL AIRWAY REMOVED AND SUCTION USED WITH SMALL AMOUNT OF BRIGHT RED DRAINAGE. PT EYES REMAIN CLOSED AND PT RESTS HEAD BACK, AND RESP EVEN AND UNLABORED. 0829 O2 REMOVED. 0847 MD AT BEDSIDE AND PT OPENS HIS EYES AND TALKING TO MD. 0855 PT DENIES CONCERNS AND PLAN OF CARE DISCUSSED.
[2023-01-01 09:27] VITALS: BP 137/80
--- NOTE | 2023-01-01 09:32 | NUR ---
0910: PT RETURNS TO UNIT VIA STRETCHER FROM PACU. AWAKE AND ALERT ON ARRIVAL. VSS, RESP EVEN AND UNLABORED. DEPENDS SATURATED. REMOVED AND PERICARE COMPLETED WITH TWO PERSON ASSIST. NEW DEPENDS IN PLACE. ABD DRESSING C/D/I. SCDS IN PLACE. DENIES PAIN AND NAUSEA AT THIS TIME. ICE WATER AND COFFEE PROVIDED REQUESTED. POC DISCUSSED AND PT AGREEABLE. NO NEEDS VOICED. SISTER ATTENTIVE AT THE BEDSIDE. CALL LIGHT WITHIN REACH
[2023-01-01 10:15] VITALS: BP 149/75
--- NOTE | 2023-01-01 10:50 | NUR ---
1015: PT AWAKE AND ALERT UPRIGHT IN STRETCHER. CONTS TO DENY PAIN AND NAUSEA. ZARIA PO INTAKE WELL. VSS, RESP EVEN AND UNLABORED. DRESSING REMAINS UNCHANGED. SL REMOVED WITH CATH TIP INTACT AND PRESSURE APPLIED TO SITE, WNL. PT DRESSED WITH TWO PERSON ASSIST AND TRANSFERRED TO . DC INSTRUCTION PROVIDED AND DISCUSSED ORDERED. PT AND PT'S SISTER VOICE UNDERSTANDING AND DENY QUESTIONS AND CONCERNS AT THIS TIME. 1040: PT WHEELED OFF OF UNIT TO LOBBY. PT REMAINS WITH SISTER THEY AWAIT TRASPORTATION SERVICES BACK TO THE [facility].
--- NOTE | 2023-01-01 13:52 | NUR ---
PT ACCOMPANIED BY . PT ADMITS TO BEING GRUMPY AT TIMES. TODAY WAS JOVIAL AND JOKING. TEASED ME ABOUT NOT BRINGING HIM CHOCOLATE CHIP COOKIES. CONSENTED TO PRAYER. PRAYED FOR SUCCESSFUL PROCEDURE AND ONGOING HEALING.
--- NOTE | 2023-01-02 10:30 | OR ---
[facility] [address] [place], [place] [address] Signed DATE OF OPERATION: 01/01/2023 SURGEON: Kilo Morales MD PREOPERATIVE DIAGNOSES: 1. Oropharyngeal cancer with ongoing radiation therapy. 2. Malnutrition. POSTOPERATIVE DIAGNOSES: 1. Oropharyngeal cancer with ongoing radiation therapy. 2. Malnutrition. PROCEDURE: PEG (percutaneous endoscopic gastrostomy) tube including upper endoscopy and placement of gastrostomy tube via pull technique. ANESTHESIA: General endotracheal. Kilo Mandel CRNA. INDICATIONS: This 72-year-old white man is a patient of Dr. Gerardo More and Cristiana Mccloud, has an oropharyngeal cancer for which he is receiving ongoing radiation therapy. Dr. More has requested a feeding tube on the basis of predictable progression of dysphagia during the course of therapy. The patient does have substandard nutrition generally speaking. In his left upper oropharyngeal area, a firm mass consistent with the neoplasm and secondary effects of radiation therapy. He is admitted to undergo percutaneous endoscopic gastrostomy (PEG) tube. He understands, as does his , the risk of bleeding, infection, and other unforeseen complications. FINDINGS: Good transillumination of the anterior abdominal wall was noted. He did have antral erosions, but no sign of gastric outlet obstruction or actual ulcer. Placement of the tube was at the junction between the antrum and the body of the stomach on the anterior gastric wall. Good function of the tube was noted at conclusion. There were no complications. DESCRIPTION OF PROCEDURE: The patient was brought to the surgical endoscopy suite and placed in the supine position. At the discretion of the acid pump operator, a general endotracheal anesthetic was deemed most advisable. He received preoperative antibiotic Ancef. Sequential Electronically Signed By: KILO MORALES MD 01/02/23 1030 PATIENT NAME: TI JARQUIN OPERATIVE REPORT DATE OF : 50 REPORT #: [id number] PHYSICIAN: KILO MORALES MD PCP: CRISTIANA MCCLOUD NP REPORT IS CONFIDENTIAL AND NOT TO BE RELEASED WITHOUT AUTHORIZATION [facility] [address] [place], [place] [address] Signed compression device stockings were used. Once well positioned with endotracheal tube, a bite block was placed and an Olympus video upper endoscope passed in the hypopharynx, which was easily passed into the esophagus itself. The scope was advanced to the stomach which was insufflated with air. Rugal folds were normal. The antrum had erosions, but no sign of deep ulcer. The scope was passed through the pylorus without problem. The duodenum was normal. Photographs were taken. The scope was withdrawn and re-examination of the stomach showed no contraindication of the PEG tube placement. Withdrawal, the stomach allowed for transillumination to the anterior abdominal wall, which was easily identified. An area was designated appropriate for placement of the tube percutaneously. This area was prepared with a Betadine solution and draped sterilely. Under direct visualization with the scope visualizing the anterior abdominal wall and anterior gastric wall, impression with the index finger showed appropriate site for passage of the needle. The site was incised with an 11 blade vertically and an angiocatheter provided and the PEG tube kit passed through the incision into the anterior abdominal wall and into the stomach without impediment. A flexible loop wire was passed through the angiocatheter and using the provided snare, the wire was grasped. The wire and the scope were removed in continuity from the oropharynx securing the loop wire. The previously inspected PEG gastrostomy tube was then affixed to the loop in the standard way and carefully withdrawn and pulled out of the anterior abdominal wall (pull technique). This was secured and the scope reintroduced allowing for visualization of the mcdaniel of the PEG tube. This was withdrawn a bit more to provide a snug but not excessively tight contact with the PEG tube to the gastric wall. A circular flange and volume control device were applied as was the connector to the tube itself after trimming it to appropriate length. Reinspection with the endoscope allowed for flushing of the tube with tap water showing good function. The flange was then secured to the skin with a single 0 nylon suture. An additional 0 nylon tie around the PEG tube flange itself, securing it well into position. Triple antibiotic ointment provided and the kit was applied to the puncture site as was the gauze dressing. Two separate large OpSites were applied to secure the tube fully. Reinspection with the endoscope allowed for aspiration of excessive air and gastric fluid. He was ultimately extubated and transferred to the recovery room in good condition. Sponge, needle, and instrument counts were reported as correct x3. Electronically Signed By: KILO MORALES MD 01/02/23 1030 PATIENT NAME: TI JARQUIN OPERATIVE REPORT DATE OF : 50 REPORT #: [id number] PHYSICIAN: KILO MORALES MD PCP: CRISTIANA MCCLOUD NP REPORT IS CONFIDENTIAL AND NOT TO BE RELEASED WITHOUT AUTHORIZATION [address] [address] Signed Kilo Morales MD JM/MODL /[id number] cc: Gerardo More MD, PH.D. LUIS Fernandez MD Copies: GERARDO MORE ROBERT C MD ~ Electronically Signed By: KILO MORALES MD 01/02/23 1030 PATIENT NAME: TI JARQUIN OPERATIVE REPORT DATE OF : 50 REPORT #: [id number] PHYSICIAN: KILO MORALES MD PCP: CRISTIANA MCCLOUD NP REPORT IS CONFIDENTIAL AND NOT TO BE RELEASED WITHOUT AUTHORIZATION
== END 2023-01-01 10:40 ==
LOC: DS 05:50
PROVIDERS: ATTEND Surgery
PROC: 0DH63UZ Insertion of Feeding Device into Stomach, Percutaneous Approach (ICD-10-PCS; principal; 2023-01-01 07:30)
DX: C10.9 Malignant neoplasm of oropharynx, unspecified (principal); E46 Unspecified protein-calorie malnutrition; F10.20 Alcohol dependence, uncomplicated; F17.290 Nicotine dependence, other tobacco product, uncomplicated; J43.9 Emphysema, unspecified; B19.20 Unspecified viral hepatitis C without hepatic coma; I10 Essential (primary) hypertension; Z51.0 Encounter for antineoplastic radiation therapy; Z86.010 Personal history of colon polyps
CPT/HCPCS: J0330; J0690; J1100; J1644; J1885; J2405; J2704; J7121